=== PATIENT | female | born 2005 | race Two or more races ===

== ENCOUNTER 2024-12-25 06:40 | Emergency (ER) | payer OTHER ==
[~2024-12-25] VITALS: Ht 157.5 cm; Wt 52.2 kg
[2024-12-25] MEDS ORDERED: ONDANSETRON HCL 2 MG/ML VIAL IV STA (08:37)
[2024-12-25] MEDS ORDERED: 0.9 % SODIUM CHLORIDE 1,000 ML IV STA (08:37)
[2024-12-25] MEDS ORDERED: ONDANSETRON HCL 2 MG/ML VIAL ONE (08:42)
[2024-12-25 09:15] LABS: HEMOGLOBIN 14.6 g/dL (12.0-15.00); MEAN CELL VOLUME 92.6 fL (80.00-100.00); MEAN CORPUSCULAR HEMOGLOBIN 30.6 pg (27.00-32.0); MEAN CORPUSCULAR HGB CONC 33.1 g/dl (32.0-36.0); PLATELET COUNT 261 K/uL (150-450); RED BLOOD COUNT 4.75 M/uL (4.00-6.00); RED CELL DISTRIBUTION WIDTH 13.4 % (11.5-14.5)
[2024-12-25 09:40] LABS: CALCIUM 9.3 mg/dL (8.5-10.1); CREATININE SERUM 0.7 mg/dL (0.55-1.02); GFR 105.63; POTASSIUM 3.8 mEq/L (3.5-5.1)
[2024-12-25 09:44] LABS: PH,URINE 5.5 (5.0-8.0); URINE APPEARANCE Clear; URINE BILIRRUBIN Negative (NEGATIVE); URINE BLOOD Negative; URINE COLOR Yellow; URINE GLUCOSE Negative (NEGATIVE); URINE KETONE 15 (NEGATIVE); URINE LEUKOCYTE Trace; URINE NITRATE Negative; URINE PROTEIN Negative (NEGATIVE); URINE UROBILINOGEN 0.2 E.U./dl
[2024-12-25 09:49] LABS: URINE BACTERIA 827.3 uL (0.0-1933); URINE EPITHELIAL CELLS 25.4 uL (0.0-38.8); URINE WBC 18.8 uL (0.0-23.2)
== END 2024-12-25 12:45 | disposition home or self-care (01) ==
LOC: ER 06:42
PROVIDERS: Emergency Medicine
DX: K29.70 Gastritis, unspecified, without bleeding (principal); R11.10 Vomiting, unspecified